=== PATIENT | female | born 1950 | race Caucasian/White ===

== ENCOUNTER 2023-11-13 17:37 | Emergency (ER) | payer BC ==
[2023-11-13] MEDS ORDERED: Orphenadrine Citrate 60 MG/2 ML VIAL ONE (18:32)
[2023-11-13] MEDS ORDERED: Acetaminophen 500 MG TAB ONE (18:32)
== END 2023-11-13 19:15 | disposition home or self-care (01) ==
LOC: MADERS 17:37
DX: R29.91 Unspecified symptoms and signs involving the musculoskeletal system (principal); K21.9 Gastro-esophageal reflux disease without esophagitis; M54.9 Dorsalgia, unspecified; G89.29 Other chronic pain; M25.561 Pain in right knee
CPT/HCPCS: 96372; 99283; J2360